=== PATIENT | female | born 1995 | race Hispanic/Latino ===

== ENCOUNTER 2023-11-30 09:05 | Emergency (ER) | payer OTHER ==
[2023-11-30 11:28] LABS: SARS-CoV-2 NAA Rapid Test Not Detected (NotDetected)
== END 2023-11-30 10:51 | disposition home or self-care (01) ==
LOC: ERS 09:05
DX: J06.9 Acute upper respiratory infection, unspecified (principal)
CPT/HCPCS: 71045